=== PATIENT | female | born 1985 | race Caucasian/White ===

== ENCOUNTER 2019-12-13 07:10 | Outpatient (CLI) | payer OTHER ==
--- NOTE | 2019-12-13 09:48 | Magnetic Resonance Report ---
MRI PITUITARY GLAND WITHOUT AND WITH INTRAVENOUS CONTRAST MATERIAL. CLINICAL HISTORY: Evaluate for pituitary adenoma. COMPARISON: None TECHNIQUE: Thin section high-resolution scans were obtained utilizing T1-weighted sequences. Images were acquire d in the sagittal and coronal planes. Both pre-and post contrast imaging was performed. In addition d ynamic images were acquired in the coronal plane during and immediately following intravenous contras t administration. Whole brain imaging included diffusion, axial flair, axial T1, axial T2 and axial T 1 postcontrast whole brain sequences. Contrast dose report: MultiHance: 15 mL administered intravenously. FINDINGS: The pituitary gland is normal in size and homogeneous in signal intensity on both pre-and postcontras t images. The pituitary infundibulum enters the gland in the midline. The posterior pituitary gland h as a normal appearance. Evaluation of the juxta sellar regions revealed no abnormality. Optic tracts, optic chiasm and visual ized portions of the optic nerves all have an unremarkable appearance. No abnormalities are seen in t he suprasellar cisterns. Medial temporal lobes have an unremarkable appearance. Evaluation of the cav ernous sinuses reveals no abnormality. Evaluation of whole brain images reveal no abnormalities. Ventricles and cortical sulci are normal in size and configuration. There is no mass effect. No evidence of intracranial hemorrhage or extra-axi al fluid collection is seen. No areas of abnormal brain parenchymal signal intensity are identified. Brainstem and cerebellum have a normal appearance. No abnormalities are seen on evaluation of the orbits. Paranasal sinuses are free from significant in flammatory mucosal disease. IMPRESSION: Normal MRI pituitary gland. No indication of pituitary adenoma. Signer Name: Usman Leslie MD Signed: 12/13/2019 9:44 AM Workstation Name: [id number]
== END 2019-12-13 07:11 | disposition home or self-care (01) ==
LOC: MRI 07:10
DX: E22.1 Hyperprolactinemia (principal)
CPT/HCPCS: 70553; A9577